=== PATIENT | female | born 1945 | race Caucasian/White ===

== ENCOUNTER 2018-11-17 18:17 | Inpatient (IN) ==
[2018-11-17] MEDS ORDERED: SODIUM CHLORIDE 0.9% 1,000 ML IV STA (20:11)
[2018-11-17] MEDS ORDERED: KETOROLAC 30 MG/1 ML VIAL IV STA (20:11)
[2018-11-17] MEDS ORDERED: ONDANSETRON 4 MG/2 ML VIAL IV STA (20:11)
[2018-11-17] MEDS ORDERED: MORPHINE 4 MG/1 ML VIAL IV STA (20:11)
[2018-11-17 20:56] LABS: Basophils # 0.1 10*3/uL (0.0-0.2); Basophils % 0.4 % (0.0-0.8); Eosinophils # 0.4 10*3/uL (0.0-0.87); Eosinophils % 2.6 % (0.00-10.9); Hemoglobin 16.4 GM/DL (12.0-16.0); Immature Granulocytes % 0.6 %; Immature Granulocytes Absolute 0.09 #; Lymphocytes # 3.2 10*3/uL (1.4-4.0); Lymphocytes % 20.2 % (21.3-54.2); Mean Corpuscular HGB Conc 32.2 GM/DL (32-36); Mean Corpuscular Volume 94.1 FL (87-102); Mean Platelet Volume 9.9 FL (9.6-12.0); Monocytes % 9.2 % (1.7-12.7); Platelet Count 282 T/CUMM (130-400); Red Blood Count 5.42 MC/CUMM (3.8-5.5); Red Cell Distribution Width 13.6 % (9.3-17.3); White Blood Count 15.7 T/CUMM (4-12)
[2018-11-17 21:16] LABS: Bilirubin,Total 1.3 MG/DL (0.2-1.0); Calcium 8.9 MG/DL (8.5-10.1); Osmolality,Calculated 267.2 MOS/KG (273-304); Total Protein 7.9 G/DL (6.4-8.3)
[2018-11-17] MEDS ORDERED: ASPIRIN EC 325 MG TABLET PO STA (21:24)
[2018-11-17] MEDS ORDERED: PIPERACILLIN/TAZOBACTAM 3,375 MG in SODIUM CHLORIDE 0.9% 100 ML IV STA (21:53)
[2018-11-17] MEDS ORDERED: ONDANSETRON 4 MG/2 ML VIAL IV PRN (23:01)
[2018-11-18] MEDS: SODIUM CHLORIDE 0.9% 1,000 ML IV SCH ×3 (02:10→23:18)
[2018-11-18] MEDS: PIPERACILLIN/TAZOBACTAM 3,375 MG in SODIUM CHLORIDE 0.9% 100 ML IV SCH ×3 (06:18→22:49)
[2018-11-18 07:00] LABS: Basophils # 0.1 10*3/uL (0.0-0.2); Basophils % 0.5 % (0.0-0.8); Eosinophils # 0.7 10*3/uL (0.0-0.87); Eosinophils % 5.4 % (0.00-10.9); Immature Granulocytes % 0.5 %; Immature Granulocytes Absolute 0.07 #; Mean Corpuscular HGB Conc 31.7 GM/DL (32-36); Mean Corpuscular Volume 95.9 FL (87-102); Mean Platelet Volume 10.1 FL (9.6-12.0); Monocytes % 12.1 % (1.7-12.7); Neutrophils % 58.5 % (38.7-73.9); Platelet Count 226 T/CUMM (130-400); Red Blood Count 4.38 MC/CUMM (3.8-5.5); Red Cell Distribution Width 13.7 % (9.3-17.3)
[2018-11-18 07:17] LABS: Bilirubin,Total 1.7 MG/DL (0.2-1.0); Calcium 8.2 MG/DL (8.5-10.1); Osmolality,Calculated 272.8 MOS/KG (273-304); Total Protein 6.4 G/DL (6.4-8.3)
[2018-11-18 07:19] LABS: Hemoglobin 13.3 GM/DL (12.0-16.0)
[2018-11-18] MEDS: ASPIRIN EC 81 MG TABLET PO SCH (09:32)
[2018-11-18] MEDS ORDERED: ATORVASTATIN 10 MG TABLET PO SCH (13:45)
[2018-11-19] MEDS: SODIUM CHLORIDE 0.9% 1,000 ML IV SCH ×2 (05:06→14:48)
[2018-11-19] MEDS: PIPERACILLIN/TAZOBACTAM 3,375 MG in SODIUM CHLORIDE 0.9% 100 ML IV SCH ×2 (05:06→14:42)
[2018-11-19 05:07] LABS: Basophils # 0.1 10*3/uL (0.0-0.2); Basophils % 0.4 % (0.0-0.8); Eosinophils # 0.6 10*3/uL (0.0-0.87); Eosinophils % 4.9 % (0.00-10.9); Hematocrit 42.9 VOL% (35.7-47.0); Hemoglobin 13.1 GM/DL (12.0-16.0); Immature Granulocytes % 0.6 %; Immature Granulocytes Absolute 0.07 #; Lymphocytes # 3.3 10*3/uL (1.4-4.0); Lymphocytes % 26.9 % (21.3-54.2); Mean Corpuscular HGB Conc 30.5 GM/DL (32-36); Mean Corpuscular Volume 97.9 FL (87-102); Monocytes % 9.7 % (1.7-12.7); Neutrophils % 57.5 % (38.7-73.9); Platelet Count 219 T/CUMM (130-400); Red Blood Count 4.38 MC/CUMM (3.8-5.5); Red Cell Distribution Width 13.9 % (9.3-17.3); White Blood Count 12.4 T/CUMM (4-12)
[2018-11-19 05:22] LABS: Calcium 7.8 MG/DL (8.5-10.1); Osmolality,Calculated 275.7 MOS/KG (273-304)
[2018-11-19] MEDS ORDERED: cefOXitin 2,000 MG in SYRINGE 1 EACH IV ONE (07:00)
[2018-11-19 07:22] LABS: Apearance,Urine CLEAR (Clear); Bilirubin,Urine Negative (Negative); Blood, Urine Negative (Negative); Glucose,Urine (UA) Negative (Negative); Ketones,Urine Negative (Negative); Mucus,Urine Occasional /LPF (Occasional); Nitrite,Urine Negative (Negative); Protein,Urine Negative; RBC,Urine 1 /HPF (0-4); Squamous Epithelial Cell,Urine Occasional /HPF (0-10); Urine Color Yellow (Yellow); Urine Specific Gravity 1.018 (1.001-1.035); WBC,Urine <1 /HPF (0-6)
[2018-11-19] MEDS ORDERED: INDOCYANINE GREEN 25 MG VIAL IV ONE (07:39)
[2018-11-19] MEDS ORDERED: LIDOCAINE 1%/EPI INJ 20 ML VIAL ONE (10:00)
[2018-11-19] MEDS ORDERED: BUPIVACAINE MPF 0.25% /EPI 30 ML VIAL ONE (10:00)
[2018-11-19] MEDS ORDERED: TISSUE ADHESIVE 1 EACH APPLICATOR TOP ONE (10:00)
[2018-11-19] MEDS: LEVOTHYROXINE 50 MCG TABLET PO SCH (10:37)
[2018-11-19] MEDS: ASPIRIN EC 81 MG TABLET PO SCH (10:37)
[2018-11-19] MEDS: PANTOPRAZOLE 40 MG TABLET PO SCH (10:37)
[2018-11-19] MEDS: ENOXAPARIN 40 MG/0.4 ML SYRINGE SUBCUT SCH (10:37)
[2018-11-19] MEDS ORDERED: SUGAMMADEX 200 MG/2 ML VIAL IV ONE (12:24)
[2018-11-19] MEDS ORDERED: SEVOFLURANE 1 UNIT/15 MINUTE INH ONE (12:56)
[2018-11-19] MEDS ORDERED: PROPOFOL 200 MG/20 ML VIAL IV ONE (12:57)
[2018-11-19] MEDS ORDERED: DEXAMETHASONE 4 MG/1 ML VIAL ONE (12:58)
[2018-11-19] MEDS ORDERED: ONDANSETRON 4 MG/2 ML VIAL ONE ×2 (12:58→13:05)
[2018-11-19] MEDS ORDERED: ePHEDrine 50 MG/ML AMP ONE (12:58)
[2018-11-19] MEDS ORDERED: ROCURONIUM 100 MG/10 ML VIAL IV ONE (12:58)
[2018-11-19] MEDS: HYDROmorphone 2 MG/1 ML VIAL IV PRN ×4 (13:00→13:30)
[2018-11-19] MEDS ORDERED: HYDROmorphone 2 MG/1 ML VIAL ONE (13:05)
[2018-11-19] MEDS ORDERED: ONDANSETRON 4 MG/2 ML VIAL IV PRN (13:29)
[2018-11-19] MEDS ORDERED: HYDROmorphone 2 MG/1 ML VIAL IV PRN (14:40)
[2018-11-19] MEDS ORDERED: KETOROLAC 15 MG/1 ML VIAL IV SCH (15:00)
[2018-11-19] MEDS ORDERED: KETOROLAC 15 MG/1 ML VIAL IM PRN (16:42)
[2018-11-19] MEDS ORDERED: KETOROLAC 15 MG/1 ML VIAL IM SCH (21:00)
[2018-11-19] MEDS: CIPROFLOXACIN 500 MG TABLET PO SCH (21:41)
[2018-11-20] MEDS: PIPERACILLIN/TAZOBACTAM 3,375 MG in SODIUM CHLORIDE 0.9% 100 ML IV SCH ×2 (00:56→05:26)
[2018-11-20] MEDS: SODIUM CHLORIDE 0.9% 1,000 ML IV SCH (00:56)
[2018-11-20 05:13] LABS: Basophils % 0.1 % (0.0-0.8); Eosinophils % 0.1 % (0.00-10.9); Hematocrit 35.8 VOL% (35.7-47.0); Hemoglobin 11.8 GM/DL (12.0-16.0); Immature Granulocytes % 0.6 %; Immature Granulocytes Absolute 0.08 #; Lymphocytes # 1.4 10*3/uL (1.4-4.0); Lymphocytes % 10.4 % (21.3-54.2); Mean Corpuscular Volume 94.5 FL (87-102); Mean Platelet Volume 10.6 FL (9.6-12.0); Monocytes % 7.3 % (1.7-12.7); Neutrophils % 81.5 % (38.7-73.9); Platelet Count 209 T/CUMM (130-400); Red Blood Count 3.79 MC/CUMM (3.8-5.5); Red Cell Distribution Width 13.6 % (9.3-17.3); White Blood Count 13.4 T/CUMM (4-12)
[2018-11-20 05:35] LABS: Calcium 8.2 MG/DL (8.5-10.1); Osmolality,Calculated 280.4 MOS/KG (273-304)
[2018-11-20 05:38] LABS: Albumin 2.7 G/DL (3.4-5.0); Bilirubin,Direct 0.22 MG/DL (0.0-0.20); Bilirubin,Indirect 1.3 MG/DL (0.0-1.0); Bilirubin,Total 1.5 MG/DL (0.2-1.0); Total Protein 6.6 G/DL (6.4-8.3)
[2018-11-20 07:29] VITALS: BP 109/56
[2018-11-20] MEDS: LEVOTHYROXINE 50 MCG TABLET PO SCH (08:27)
[2018-11-20] MEDS: CIPROFLOXACIN 500 MG TABLET PO SCH (08:28)
[2018-11-20] MEDS: PANTOPRAZOLE 40 MG TABLET PO SCH (08:28)
[2018-11-20] MEDS: ASPIRIN EC 81 MG TABLET PO SCH (08:28)
[2018-11-20] MEDS: ENOXAPARIN 40 MG/0.4 ML SYRINGE SUBCUT SCH (10:44)
== END 2018-11-20 13:20 | disposition home or self-care (01) | DRG 419 ==
LOC: N.ED 18:17 → N.EDINP 23:01 → SUATTDRO 23:01 → N.3E 23:23
PROVIDERS: ADMIT Internal Medicine Nephrology; ATTEND Hospitalist